=== PATIENT | female | born 1980 | race Caucasian/White ===

== ENCOUNTER 2018-11-21 16:38 | Emergency (ER) | payer SELFPAY ==
[~2018-11-21] VITALS: Ht 165.1 cm; Wt 70.0 kg
[~2018-11-21 16:38] MED LIST: BACTRIM DS1 TAB PO; CIPRO500 MG OR; DOXYCYCL HYC100 MG PO; LORTAB 10-325 M1 TAB PO; MOTRIN800 MG/TAB PO; NO HOME MEDS; PERCOCET 5/325M1 TAB PO; ULTRAM50 M1 PO; ZOFRAN ODT4 MG PO
[2018-11-21] MEDS ORDERED: BACTRIM DS1 TAB PO (18:13)
[2018-11-21] MEDS ORDERED: KEFLEX500 M1 PO (18:13)
[2018-11-21 18:20] VITALS: BP 121/64
== END 2018-11-21 18:20 | disposition home or self-care (01) | DRG 603 ==
LOC: ED 16:38
PROC: 0H96XZZ Drainage of Back Skin, External Approach (ICD-10-PCS; principal; 2018-11-21)
PROC: 0H98XZZ Drainage of Buttock Skin, External Approach (ICD-10-PCS; 2018-11-21)
DX: L02.31 Cutaneous abscess of buttock (principal); L02.212 Cutaneous abscess of back [any part, except buttock and flank]; S99.921A Unspecified injury of right foot, initial encounter; F17.200 Nicotine dependence, unspecified, uncomplicated; X58.XXXA Exposure to other specified factors, initial encounter

== ENCOUNTER 2023-12-20 13:41 | Emergency (ER) | payer SELFPAY ==
[~2023-12-20] VITALS: Ht 165.1 cm; Wt 54.4 kg
[~2023-12-20 13:41] MED LIST changes: +KEFLEX500 M1 PO
[2023-12-20] MEDS ORDERED: LIDOcaine HCl 1% (Local Anesth.) 20 ML VIAL STI STA (14:33)
[2023-12-20] MEDS ORDERED: POVIDONE IODINE 0.5 OZ/BTL TOP ONE (14:35)
[2023-12-20] MEDS ORDERED: CEPHALEXIN500 MG PO (15:20)
[2023-12-20 15:41] VITALS: BP 112/84
== END 2023-12-20 16:15 | disposition home or self-care (01) | DRG 605 ==
LOC: ED 13:41
PROC: 0HQGXZZ Repair Left Hand Skin, External Approach (ICD-10-PCS; principal; 2023-12-20)
DX: S61.211A Laceration without foreign body of left index finger without damage to nail, initial encounter (principal); F17.210 Nicotine dependence, cigarettes, uncomplicated; W26.0XXA Contact with knife, initial encounter; Y93.G1 Activity, food preparation and clean up

== ENCOUNTER 2023-12-29 17:24 | Emergency (ER) | payer SELFPAY ==
[~2023-12-29] VITALS: Ht 165.1 cm; Wt 52.1 kg
[~2023-12-29 17:24] MED LIST changes: +CEPHALEXIN500 MG PO
== END 2023-12-29 18:12 | disposition home or self-care (01) | DRG 950 ==
LOC: ED 17:24
DX: S61.211D Laceration without foreign body of left index finger without damage to nail, subsequent encounter (principal); X58.XXXD Exposure to other specified factors, subsequent encounter

== ENCOUNTER 2024-03-28 17:23 | Emergency (ER) | payer SELFPAY ==
[~2024-03-28] VITALS: Ht 165.1 cm; Wt 47.6 kg
[2024-03-28 17:29] VITALS: BP 148/93
[2024-03-28] MEDS ORDERED: LIDOCAINE VISCOUS 2% 15 ML UDC MT ONE (17:35)
[2024-03-28] MEDS ORDERED: Diph, Acellular Pertussis, Tet 0.5 ML/VIAL (Tdap) SDV IM ONE (17:35)
[2024-03-28] MEDS ORDERED: traMADol HCL 50 MG/TAB PO ONE (18:00)
[2024-03-28] MEDS ORDERED: NAPROXEN500 MG PO (19:20)
[2024-03-28 19:51] VITALS: BP 148/93
== END 2024-03-28 19:51 | disposition home or self-care (01) | DRG 605 ==
LOC: ED 17:23
DX: S00.81XA Abrasion of other part of head, initial encounter (principal); S60.512A Abrasion of left hand, initial encounter; S50.312A Abrasion of left elbow, initial encounter; S00.83XA Contusion of other part of head, initial encounter; V18.0XXA Pedal cycle driver injured in noncollision transport accident in nontraffic accident, initial encounter; Y93.55 Activity, bike riding; F17.200 Nicotine dependence, unspecified, uncomplicated; Z87.820 Personal history of traumatic brain injury

== ENCOUNTER 2024-05-01 21:37 | Emergency (ER) | payer SELFPAY ==
[~2024-05-01] VITALS: Ht 165.1 cm; Wt 49.0 kg
[~2024-05-01 21:37] MED LIST changes: +NAPROXEN500 MG PO
[2024-05-01] MEDS ORDERED: SULFAMETHOXAZOLE W/TRIMETHOPRI 1 COMBO TAB PO STA (22:20)
[2024-05-01] MEDS ORDERED: BACTRIM DS1 TAB PO (22:25)
[2024-05-01] MEDS ORDERED: DICLOFENAC SODIUM 75 MG/TAB PO ONE (22:25)
[2024-05-01] MEDS ORDERED: ACETAMINOPHEN 500 MG TAB PO ONE (22:25)
[2024-05-01 23:05] VITALS: BP 138/89
== END 2024-05-01 23:10 | disposition home or self-care (01) | DRG 607 ==
LOC: ED 21:37
DX: L73.9 Follicular disorder, unspecified (principal); F17.200 Nicotine dependence, unspecified, uncomplicated

== ENCOUNTER 2024-06-05 17:10 | Emergency (ER) | payer SELFPAY ==
[~2024-06-05] VITALS: Ht 165.1 cm; Wt 47.6 kg
[2024-06-05 18:00] VITALS: BP 136/94
[2024-06-05 18:30] VITALS: BP 141/99
[2024-06-05] MEDS ORDERED: VIBRAMYCIN100 M2 PO (18:33)
[2024-06-05 18:49] VITALS: BP 136/94
== END 2024-06-05 18:50 | disposition home or self-care (01) | DRG 603 ==
LOC: ED 17:10
DX: L02.212 Cutaneous abscess of back [any part, except buttock and flank] (principal); R59.0 Localized enlarged lymph nodes; Z72.0 Tobacco use